=== PATIENT | female | born 1935 | race Caucasian/White ===

== ENCOUNTER → 2016-04-26 | Outpatient (CLI) | payer MEDICARE, BC ==
--- NOTE | 2016-04-30 09:12 | MM ---
Reason for exam: screening (asymptomatic). Last mammogram was performed 1 year ago. History: Patient is postmenopausal. Family history of breast cancer in sister at age 75. Benign excisional biopsy of the left breast, 1960. Benign excisional biopsy of the left breast. Physical Findings: A clinical breast exam by your physician is recommended on an annual basis and results should be correlated with mammographic findings. MG 3D Screening Mammo W/Cad Bilateral CC and MLO view(s) were taken. Prior study comparison: May 02, 2015, right breast MG 3d work up w/cad RT. April 22, 2015, bilateral MG screening mammo w CAD. March 11, 2014, bilateral MG screening mammo w CAD. There are scattered fibroglandular densities. No significant changes when compared with prior studies. ASSESSMENT: Benign, BI-RAD 2 RECOMMENDATION: Routine screening mammogram of both breasts in 1 year.
== END ==
LOC: RADMAMWWP 16:25
PROVIDERS: ATTEND Family Medicine
DX: Z12.31 Encounter for screening mammogram for malignant neoplasm of breast (principal)
CPT/HCPCS: 77063; G0202

== ENCOUNTER → 2016-08-22 | Outpatient (CLI) | payer MEDICARE, BC ==
--- NOTE | 2016-08-23 11:55 | BD ---
EXAMINATION TYPE: MG DEXA axial skeleton. DATE OF EXAM: 08/22/2016 COMPARISON: NONE CLINICAL HISTORY: Height: 5 ft 6 in Weight: 210 FRAX RISK QUESTIONS: Alcohol (3 or more units per day): NO Family History (Parent hip fracture): NO Glucocorticoids (More than 3mos): NO (Ex: prednisone, prednisolone, methylprednisolone, dexamethasone, and hydrocortisone). History of Fracture in Adulthood: NO Secondary Osteoporosis: 1. Type 1 Diabetes: NO 2. Hyperthyroidism: NO 3. Menopause before 45: NO 4. Malnutrition: NO 5. Chronic liver disease: NO Rheumatoid Arthritis: NO Current Tobacco Use: NO RISK FACTORS HISTORY OF: Active: NO Postmenopausal woman: AGE 49 Lost more than 2 inches in height since high school: YES Frequent falls: NO USES A CANE Additional Medications: VIT D2, VERAPAMIL, LEVOTHYROXINE, LOSARTIN POTASSIUM, CLOPIDOGREL, PAROXTINE, COQ10,CALCIUM Additional History: EXAM MEASUREMENTS: Bone mineral densitometry was performed using the [employer]. Bone mineral density as measured about the Lumbar spine is: ----- L1-L4(G/cm2): 1.156 T Score Values are as follows: ----- L2: 0.2 ----- L3: -1.0 ----- L4: -0.6 ----- L1-L4: -0.2 Bone mineral density has: Increased 0.1% since study of: 2013 Bone mineral density about the R hip (g/cm2): 0.675 Bone mineral density about the L hip (g/cm2): 0.703 T Score values are as follows: -----R Neck: -2.6 -----L Neck: -2.4 -----R Total: -2.5 -----L Total: -2.2 Bone mineral density has: Increased 0.7% since study of: 2013 IMPRESSION: Osteoporosis (T Score less than -2.5) as noted by T Score values at the There is increased fracture risk and therapy is usually indicated based on age. Re-Screen 1-2 years. Bone density has improved 0.7% from 2014 within the bilateral hips. Bone density is improved 0.1% wit hin the lumbar spine from 2013. NOTE: T-SCORE=SD OF THE YOUNG ADULT MEAN.
== END | disposition home or self-care (01) ==
LOC: RADBDWWP 16:18
PROVIDERS: ATTEND Family Medicine
DX: M81.0 Age-related osteoporosis without current pathological fracture (principal)
CPT/HCPCS: 77080

== ENCOUNTER → 2017-06-14 | Outpatient (CLI) | payer MEDICARE, BC ==
--- NOTE | 2017-06-18 10:19 | MM ---
Reason for exam: screening (asymptomatic). Last mammogram was performed 1 year and 2 months ago. History: Patient is postmenopausal. Family history of breast cancer in sister at age 75. Benign excisional biopsy of the left breast, 1960. Benign excisional biopsy of the left breast. Physical Findings: A clinical breast exam by your physician is recommended on an annual basis and results should be correlated with mammographic findings. MG 3D Screening Mammo W/Cad Bilateral CC and MLO view(s) were taken. Prior study comparison: April 26, 2016, bilateral MG 3d screening mammo w/cad. May 02, 2015, right breast MG 3d work up w/cad RT. The breast tissue is heterogeneously dense. This may lower the sensitivity of mammography. Finding: There are typically benign punctate calcifications in both breasts. No suspicious abnormality. No significant changes in finding since April 26, 2016 and May 02, 2015. ASSESSMENT: Benign, BI-RAD 2 RECOMMENDATION: Routine screening mammogram of both breasts in 1 year.
== END | disposition home or self-care (01) ==
LOC: RADMAMWWP 16:16
PROVIDERS: ATTEND Family Medicine
DX: Z12.31 Encounter for screening mammogram for malignant neoplasm of breast (principal)
CPT/HCPCS: 77063; 77067

== ENCOUNTER → 2018-09-18 | Outpatient (CLI) | payer MEDICARE, BC | END | disposition home or self-care (01) | LOC: RADECHMAIN 11:50 | PROVIDERS: ATTEND Family Medicine | DX: I49.3 Ventricular premature depolarization (principal); I49.1 Atrial premature depolarization; I95.9 Hypotension, unspecified; R01.1 Cardiac murmur, unspecified; Z88.1 Allergy status to other antibiotic agents; Z88.8 Allergy status to other drugs, medicaments and biological substances | CPT/HCPCS: 93270 ==

== ENCOUNTER → 2018-12-05 | Outpatient (CLI) | payer MEDICARE, BC ==
[2018-12-05 12:58] LABS: Basophils % (A) 1 %; Eosinophils # (A) 0.4 k/uL (0-0.7); Eosinophils % (A) 5 %; HCT 42.6 % (34.0-46.0); HGB 14.2 gm/dL (11.4-16.0); Lymphocytes # (A) 1.4 k/uL (1.0-4.8); Lymphocytes % (A) 18 %; MCH 31.9 pg (25.0-35.0); MCHC 33.4 g/dL (31.0-37.0); MCV 95.5 fL (80.0-100.0); Mean Platelet Volume 6.2; Monocytes # (A) 0.5 k/uL (0-1.0); Monocytes % (A) 6 %; Neutrophils # (A) 5.5 k/uL (1.3-7.7); Neutrophils % (A) 69 %; Platelet Count 241 k/uL (150-450); RBC 4.45 m/uL (3.80-5.40); RDW 13.3 % (11.5-15.5)
[2018-12-05 13:07] LABS: Potassium 4.3 mmol/L (3.5-5.1)
== END | disposition home or self-care (01) ==
LOC: LABPAT 11:40
PROVIDERS: ATTEND Urology
DX: Z01.812 Encounter for preprocedural laboratory examination (principal); N20.1 Calculus of ureter
CPT/HCPCS: 80048; 85025

== ENCOUNTER 2018-12-11 07:30 | Day surgery (SDC) | payer BC, MEDICARE ==
--- NOTE | 2018-11-26 13:55 | P.HPIHPCON ---
History of Present Illness H&P Date: 12/11/18 Chief Complaint: right flank pain 83 yo female with hx of 5mm right sided distal stone and gross hematuria. 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 I have explained the operation/procedure to the patient, including the risks, benefits, side effects, alternative therapies (including not receiving the proposed treatment or service), the likelihood of the patient achieving his/her goals, and potential recuperation problems for the procedure/sedation/analgesia, as well as any blood products, if indicated. I also explained to the patient the risks, benefits and side effects of the alternatives, as well as the risks related to not receiving the proposed procedure, care, treatment, or services. Consent for Procedure: I have explained the operation/procedure to the patient, including the risks, benefits, side effects, alternative therapies (including not receiving the proposed treatment or service), the likelihood of the patient achieving his/her goals, and potential recuperation problems for the procedure/sedation/analgesia, as well as any blood products, if indicated. I also explained to the patient the risks, benefits and side effects of the alternatives, as well as the risks related to not receiving the proposed procedure, care, treatment, or services. - Constitutional Constitutional: Denies chills, Denies fever - Cardiovascular Cardiovascular: Denies chest pain, Denies leg edema - Respiratory Respiratory: Denies cough, Denies respiratory infections Past Medical History Past Medical History: CVA/TIA, Hyperlipidemia, Hypertension, Thyroid Disorder History of Any Multi-Drug Resistant Organisms: None Reported Past Surgical History: Hernia Repair, Joint Replacement, Orthopedic Surgery Additional Past Surgical History / Comment(s): vein stripping Past Psychological History: No Psychological Hx Reported Smoking Status: Never smoker Past Alcohol Use History: None Reported Past Drug Use History: None Reported Medications and Allergies Home Medications Medication Instructions Recorded Confirmed Type Calcium Carbonate [Calcium] 2,400 mg PO DAILY 09/09/15 01/16/16 History Clopidogrel Bisulfate [Plavix] 75 mg PO DAILY 09/09/15 01/16/16 History Ergocalciferol [Vitamin D2 50,000 mg PO QMONTH 09/09/15 01/16/16 History (DRISDOL)] Levothyroxine Sodium [Synthroid] 88 mcg PO DAILY 09/09/15 01/16/16 History Losartan Potassium 100 mg PO DAILY 09/09/15 01/16/16 History PARoxetine HCL 40 mg PO HS 09/09/15 01/16/16 History Ubidecarenone [Co Q-10] 200 mg PO DAILY 09/09/15 01/16/16 History Verapamil Sr [Isoptin Sr] 240 mg PO BID 09/09/15 01/16/16 History Cyclobenzaprine [Flexeril] 5 mg PO BID PRN #10 tab 01/16/16 Rx Allergies Allergy/AdvReac Type Severity Reaction Status Date / Time erythromycin base AdvReac Unknown Verified 01/16/16 18:37 [From Staticin] ethyl alcohol [From Staticin] AdvReac Unknown Verified 01/16/16 18:37 propoxyphene napsylate AdvReac Chest Pain Verified 01/16/16 18:37 [From Darvocet-N] Surgical - Exam - General well developed, well nourished, moderate pain - Respiratory normal expansion, normal respiratory effort - Abdomen Abdomen: soft, non tender, no distended Assessment and Plan Assessment: 83 yo female with hx of gross hematuria and right sided ureteral stone -right ureteroscopy with holimum laser. given her hematuria will plan on doing left RPG
[2018-12-10 11:15] VITALS: BMI 33.4
[~2018-12-11 07:30] MED LIST: DEXAMETHASONE SOD PHOSPHATE 10 MG/ML 1 ML VIAL IV ONE; HYDROmorphone 0.5 MG/0.5 ML SYRINGE IVP PRN; LACTATED RINGERS 1,000 ML IV SCH; ONDANSETRON 4 MG/2 ML VIAL IVP ONE
--- NOTE | 2018-12-11 07:49 | XR ---
EXAMINATION TYPE: XR KUB DATE OF EXAM: 12/11/2018 CLINICAL HISTORY: Nephrolithiasis and abdominal pain TECHNIQUE: Single KUB supine projection of the abdomen. COMPARISON: None. FINDINGS: There is a moderate amount retained colonic stool throughout the colon. There is a 5 mm rig ht-sided renal calcification. No left-sided renal calcifications are seen. Extensive degenerative miracle nges of the spine and mild levoscoliotic curvature. With the left noted in the pelvis. Diffuse osseou s demineralization. Extensive degenerative changes of the hips. Phleboliths are noted in the pelvis. IMPRESSION: 1. Solitary right renal calculus. 2. Moderate degree colonic fecal stasis in an overall nonobstructive bowel gas pattern.
[2018-12-11] MEDS ORDERED: LIDOCAINE 1% 20 ML VIAL (10MG/ML) FOR IV START INTRADERMA ONE (08:05)
[2018-12-11] MEDS ORDERED: fentaNYL (PF) 50 MCG/ML 2 ML AMP ONE (08:51)
[2018-12-11] MEDS ORDERED: PROPOFOL 10 MG/ML 20 ML VIAL IV ONE (08:51)
[2018-12-11] MEDS ORDERED: SUCCINYLCHOLINE CHLORIDE 100 MG/5 ML SYR IV ONE (08:51)
[2018-12-11] MEDS ORDERED: LIDOCAINE 1% INJ 10MG/ML (20 ML MDV) ONE (08:51)
[2018-12-11] MEDS ORDERED: IOPAMIDOL-370 50ML BTL MISCELLANE ONE (09:18)
[2018-12-11 10:32] VITALS: TEMP 97.3
--- NOTE | 2018-12-11 11:51 | FL ---
EXAMINATION TYPE: FL urography retrograde DATE OF EXAM: 12/11/2018 COMPARISON: NONE HISTORY: Fluoroscopic documentation during retrograde ureteroscopy bilaterally. History of nephrolith iasis. TECHNIQUE: Fluoroscopy. FINDINGS: Fluoroscopic guidance was provided during procedure performed by Dr. Lugo. A total of 4 6 seconds of fluoroscopic time was utilized during the procedure and 7 spot images was acquired demon strating ureteral cannulation and hydronephrosis of one kidney, laterality unspecified on the provide d images. IMPRESSION: As Above.
[2018-12-11 13:21] VITALS: BP 148/88; PULSE 79; RESP 18
--- NOTE | 2018-12-11 19:24 | P.OP ---
Date of Procedure: 12/11/18 Preoperative Diagnosis: right-sided ureteral stone/gross hematuria Postoperative Diagnosis: same Procedure(s) Performed: cystoscopy, left retrograde pyelogram, right retrograde pyelogram, ureteroscopy, holmium laser lithotripsy, stone basketing and stent placement Implants: 4.8 Fr X 26 cm stent Anesthesia: JENNIFER Surgeon: Gareth Lugo IV fluids (ml): 5 Disposition: PACU Indications for Procedure: 83 yo female with hx of 5mm right sided distal stone and gross hematuria. 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 she elected to proceed with bilateral retrograde pyelogram and right-sided ureteroscopy with laser lithotripsy, stone basketing and stent placement. Discussed risk of bleeding, infection and injury to the ureter from the procedure. she agreed to proceed I have explained the operation/procedure to the patient, including the risks, benefits, side effects, alternative therapies (including not receiving the proposed treatment or service), the likelihood of the patient achieving his/her goals, and potential recuperation problems for the procedure/sedation/analgesia, as well as any blood products, if indicated. I also explained to the patient the risks, benefits and side effects of the alternatives, as well as the risks related to not receiving the proposed procedure, care, treatment, or services. Operative Findings: impacted right sided distal stone with scar distal ureter distal to the stone Description of Procedure: the patient was brought to the operating room, general anesthesia was induced. The patient was placed in dorsal lithotomy position. She was prepped and draped in sterile fashion. A cystoscope fitted with a 22 sheath was inserted per urethra. Cystoscopy was performed which showed no suspicious lesions within the bladder. Attention Was first carried to the left side a 6-Italian open ended catheter was used to intubate the left ureteral orifice retrograde pyelogram was performed which showed no filling defects or hydronephrosis on the left side. At this time attention was directed to the right side. The right ureteral orifice was intubated with a 6-Italian open-ended catheter and retrograde pyelogram was performed which showed no contrast flowing passed the stone. We then attempted to pass a sensor wire through the catheter past the stone but resistance was met at this time the cystoscope was removed and a semirigid ureteroscope was inserted. The ureteroscope was inserted through the right ureteral orifice and advanced to the distal ureter a scar was identified in the distal ureter distal to the stone and the stone appeared to be impacted at that site. We were able to navigate the flexible ureteroscope past the stricture. Holmium laser was used and the stone was fragmented into small fragments. Using the stone baskets large fragments were removed and sent to pathology for stone analysis. The rigid ureteroscope was reinserted and a repeat ureteroscopy showed no additional stones along the ureter or injury to the ureter. patient has a known 5 mm nonobstructing renal calculus. But given patient's Plavix and the stricture along the distal ureter. Decision was made not to approach the stone given the risk of bleeding and the potential of injuring the ureter given the stricture. This was discussed with the patient in preop given her Plavix use if there is a concern of bleeding and we will not proceed with addressing the renal calculi given that is not obstructing at this point. Next the cystoscope was reinserted, and a 0.035 sensor wire was advanced through the cystoscope and up the ureter. Next a 4.8-Italian by 26 cm stent was advanced over the wire and up the ureter. The proximal curl was visualized using fluoroscopy, the distal curl was visualized using the cystoscope. The bladder was emptied at the end of the case. Patient tolerated the procedure well and was taken to PACU in stable condition
== END 2018-12-11 13:15 | disposition home or self-care (01) ==
LOC: OR 07:30
PROVIDERS: ATTEND Urology
DX: N20.1 Calculus of ureter (principal); N13.5 Crossing vessel and stricture of ureter without hydronephrosis; R31.0 Gross hematuria; E78.5 Hyperlipidemia, unspecified; I10 Essential (primary) hypertension; E07.9 Disorder of thyroid, unspecified; Z86.73 Personal history of transient ischemic attack (TIA), and cerebral infarction without residual deficits; Z79.02 Long term (current) use of antithrombotics/antiplatelets; Z79.890 Hormone replacement therapy; Z79.899 Other long term (current) drug therapy; Z88.1 Allergy status to other antibiotic agents; Z88.5 Allergy status to narcotic agent; Z91.048 Other nonmedicinal substance allergy status
CPT/HCPCS: 52356; 82365; 74420; 74018; C2625; C1758; J1100; J0690; J2405; J2001; J3010; J0330; J2704; Q9967

== ENCOUNTER 2019-10-09 01:34 | Inpatient (IN) | payer MEDICARE, BC ==
[2019-10-09 02:52] LABS: Basophils % (A) 0 %; Eosinophils # (A) 0.2 k/uL (0-0.7); Eosinophils % (A) 2 %; HCT 49.6 % (34.0-46.0); HGB 16.2 gm/dL (11.4-16.0); Lymphocytes # (A) 1.1 k/uL (1.0-4.8); Lymphocytes % (A) 7 %; MCH 31.4 pg (25.0-35.0); MCHC 32.7 g/dL (31.0-37.0); MCV 95.8 fL (80.0-100.0); Mean Platelet Volume 7.5; Monocytes # (A) 0.8 k/uL (0-1.0); Monocytes % (A) 5 %; Neutrophils # (A) 13.1 k/uL (1.3-7.7); Neutrophils % (A) 85 %; Platelet Count 215 k/uL (150-450); RBC 5.17 m/uL (3.80-5.40); RDW 13.5 % (11.5-15.5); WBC 15.4 k/uL (3.8-10.6)
[2019-10-09] MEDS ORDERED: MORPHINE SULFATE 4 MG/ML SYRINGE IV STA (02:54)
[2019-10-09 03:01] LABS: ALT 12 U/L (4-34); AST 17 U/L (14-36); African American GFR (CKD) >90 (>60 ml/min/1.73 sqM); Albumin 4.2 g/dL (3.5-5.0); Alkaline Phosphatase 92 U/L (38-126); Amylase 47 U/L (30-110); Anion Gap 7 mmol/L; Blood Urea Nitrogen 27 mg/dL (7-17); Calcium 10.9 mg/dL (8.4-10.2); Carbon Dioxide 24 mmol/L (22-30); Chloride 106 mmol/L (98-107); Glucose 154 mg/dL (74-99); Lipase 62 U/L (23-300); Non-African American GFR(CKD) 81 (>60 ml/min/1.73 sqM); Potassium 4.3 mmol/L (3.5-5.1); Sodium 137 mmol/L (137-145); Total Bilirubin 0.9 mg/dL (0.2-1.3)
[2019-10-09] MEDS ORDERED: LABETALOL 5 MG/ML VIAL MDV IVP STA (03:28)
--- NOTE | 2019-10-09 03:58 | CT ---
EXAMINATION TYPE: CT abdomen pelvis wo con DATE OF EXAM: 10/09/2019 COMPARISON: None HISTORY: Right lateral abdominal pain CT DLP: 1388.4 mGycm Automated exposure control for dose reduction was used. Multiple axial sections were obtained from the diaphragm to the floor the pelvis with no contrast. FINDINGS: There is patchy infiltrate or atelectasis at both lung bases. There is no pleural effusion. Heart panda ears slightly enlarged. Stomach is intact. Liver and gallbladder appear intact. Bile ducts are not dilated. Spleen is intact. There is no evidence of pancreatic mass. There is no adrenal mass. Kidneys have normal size. There is right-sided perinephric edema and right- sided hydronephrosis. There is hydroureter with 10 mm obstructing calculus in the mid right ureter. B ladder distends smoothly. There is no evidence of a pelvic mass. There is hysterectomy. There is no f ree fluid in the pelvis. There are multiple sigmoid diverticula. I see no sign of diverticulitis. Panda endix is not seen. There is no sign of thickened appendix. There is 1 cm high density nodule on the p osterior left kidney that is probably a cyst containing calcium. There is no renal atrophy. There is no mesenteric edema. There is no ascites or free air. There is no evidence of a bowel obstru ction. There is no inguinal hernia. Lumbar vertebra have fairly normal alignment. There is disc space narrowing and multilevel vacuum dis c. There is no compression fracture. Bony pelvis is intact. 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 IMPRESSION: Obstructing large calculus in the midright ureter with right-sided hydronephrosis and hydroureter. Pe rinephric edema. Sigmoid diverticulosis without diverticulitis. Mild infiltrates and atelectasis at the lung bases.
[2019-10-09 04:21] LABS: Appearance,Urine Cloudy (Clear); Bilirubin,Urine Negative (Negative); Blood,Urine Large (Negative); Color,Urine Red; Glucose,Urine (UA) Negative (Negative); Ketones,Urine Negative (Negative); Leukocyte Esterase,Urine Large (Negative); Mucus,Urine Rare /hpf; Nitrite,Urine Negative (Negative); PH, Urine 5.5 (5.0-8.0); Protein,Urine 1+ (Negative); RBC,Urine >182 /hpf (0-5); Specific Gravity,Urine 1.018 (1.001-1.035); Urobilinogen,Urine <2.0 mg/dL (<2.0); WBC,Urine >182 /hpf (0-5)
[2019-10-09] MEDS ORDERED: NALOXONE 0.4 MG/ML 1 ML VIAL IV PRN (05:44)
[2019-10-09] MEDS ORDERED: ACETAMINOPHEN TAB 325 MG TAB PO PRN (05:44)
[2019-10-09] MEDS ORDERED: ONDANSETRON 4 MG/2 ML VIAL IVP PRN (05:44)
[2019-10-09] MEDS: MORPHINE SULFATE 4 MG/ML SYRINGE IV PRN ×3 (05:56→19:22)
--- NOTE | 2019-10-09 06:55 | ED ---
Abdominal Pain HPI - General Chief Complaint: Abdominal Pain Stated Complaint: abd pain Time Seen by Provider: 10/09/19 02:52 Source: patient Mode of arrival: ambulatory Limitations: no limitations - History of Present Illness MD Complaint: abdominal pain -: hour(s) Location: R flank Radiation: none Migration to: RLQ Severity: severe Quality: sharp Consistency: constant Improves With: nothing Worsens With: nothing Associated Symptoms: nausea - Related Data Home Medications Medication Instructions Recorded Confirmed Clopidogrel Bisulfate [Plavix] 75 mg PO DAILY 09/09/15 12/11/18 Ergocalciferol [Vitamin D2 50,000 mg PO Q14D 09/09/15 12/11/18 (DRISDOL)] Levothyroxine Sodium [Synthroid] 88 mcg PO DAILY 09/09/15 12/11/18 Losartan Potassium 100 mg PO DAILY 09/09/15 12/11/18 PARoxetine HCL 40 mg PO HS 09/09/15 12/11/18 Ubidecarenone [Co Q-10] 200 mg PO DAILY 09/09/15 12/11/18 Aspirin 81 mg PO DAILY 12/10/18 12/11/18 Calcium Carbonate/Vitamin D3 1 each PO BID 12/10/18 12/11/18 [Calcium 600-Vit D3 2,500 Sftgl] Docusate [Colace] 100 mg PO DAILY 12/10/18 12/11/18 L.acidoph,Paracasei, B.lactis 1 each PO DAILY 12/10/18 12/11/18 [Probiotic] [place](Unknown Dose) 1 tab PO Q6H PRN 12/10/18 12/11/18 Rosuvastatin Calcium [Crestor] 5 mg PO HS 12/10/18 12/11/18 Tamsulosin [Flomax] 0.4 mg PO DAILY 12/10/18 12/11/18 Allergies Allergy/AdvReac Type Severity Reaction Status Date / Time propoxyphene napsylate Allergy Chest Pain Verified 10/09/19 02:03 [From Balaji] Review of Systems ROS Statement: Those systems with pertinent positive or pertinent negative responses have been documented in the HPI. ROS Other: All systems not noted in ROS Statement are negative. Constitutional: Denies: fever, chills, weakness Respiratory: Denies: cough, dyspnea Cardiovascular: Denies: chest pain, palpitations, edema Gastrointestinal: Reports: as per HPI, abdominal pain, nausea. Denies: vomiting, diarrhea, constipation, melena, hematochezia Genitourinary: Denies: dysuria, frequency, hematuria Musculoskeletal: Denies: back pain Skin: Denies: rash Neurological: Denies: headache, weakness, numbness Past Medical History Past Medical History: CVA/TIA, Hyperlipidemia, Hypertension, Thyroid Disorder Additional Past Medical History / Comment(s): stroke may 2018 History of Any Multi-Drug Resistant Organisms: None Reported Past Surgical History: Hernia Repair, Joint Replacement, Orthopedic Surgery Additional Past Surgical History / Comment(s): vein stripping. kidney stent placement Past Anesthesia/Blood Transfusion Reactions: No Reported Reaction Past Psychological History: No Psychological Hx Reported Smoking Status: Never smoker Past Alcohol Use History: None Reported Past Drug Use History: None Reported - Past Family History Mother Family Medical History: No Reported History General Exam Limitations: no limitations General appearance: alert, in no apparent distress Head exam: Present: atraumatic, normocephalic Eye exam: Present: normal appearance. Absent: scleral icterus, conjunctival injection ENT exam: Present: normal oropharynx Neck exam: Present: normal inspection Respiratory exam: Present: normal lung sounds bilaterally. Absent: respiratory distress, wheezes, rales, rhonchi, stridor Cardiovascular Exam: Present: regular rate, normal rhythm, normal heart sounds. Absent: systolic murmur, diastolic murmur, rubs, gallop GI/Abdominal exam: Present: soft, tenderness (There is mild right lower quadrant tenderness without rebound or guarding), normal bowel sounds. Absent: distended, guarding, rebound, rigid, mass, pulsatile mass, hernia Extremities exam: Present: normal inspection, normal capillary refill. Absent: pedal edema, calf tenderness Back exam: Present: normal inspection, CVA tenderness (R). Absent: CVA tenderness (L), vertebral tenderness Neurological exam: Present: alert Skin exam: Present: warm, dry, intact, normal color. Absent: rash Course Vital Signs 10/09/19 10/09/19 10/09/19 02:00 03:15 03:49 Temperature 98.1 F Pulse Rate 69 75 73 Respiratory 18 18 18 Rate Blood Pressure 199/103 201/102 196/105 O2 Sat by Pulse 97 97 95 Oximetry 10/09/19 10/09/19 03:56 04:55 Temperature Pulse Rate 73 78 Respiratory 19 18 Rate Blood Pressure 166/89 185/105 O2 Sat by Pulse 95 97 Oximetry Medical Decision Making - Medical Decision Making Patient is an 84-year-old woman presenting with right flank radiating to right lower quadrant pain. The workup does reveal approximately 1 cm ureteral stone with hydronephrosis. Patient is requiring multiple pain medications. She states that she had a previous stone that measured 8 mm that was not able to pass and she required a stent. In light of this, patient's case discussed with her primary physician Dr. Mueller, who will admit for symptom management. Case also discussed with Dr. Ochoa, covering for urology and they will see the patient as well. - Lab Data Result diagrams: 10/09/19 02:45 10/09/19 02:45 Lab Results 10/09/19 10/09/19 10/09/19 Range/Units 02:45 02:45 04:09 WBC 15.4 H (3.8-10.6) k/uL RBC 5.17 (3.80-5.40) m/uL Hgb 16.2 H (11.4-16.0) gm/dL Hct 49.6 H (34.0-46.0) % MCV 95.8 (80.0-100.0) fL MCH 31.4 (25.0-35.0) pg MCHC 32.7 (31.0-37.0) g/dL RDW 13.5 (11.5-15.5) % Plt Count 215 (150-450) k/uL Neutrophils % 85 % Lymphocytes % 7 % Monocytes % 5 % Eosinophils % 2 % Basophils % 0 % Neutrophils # 13.1 H (1.3-7.7) k/uL Lymphocytes # 1.1 (1.0-4.8) k/uL Monocytes # 0.8 (0-1.0) k/uL Eosinophils # 0.2 (0-0.7) k/uL Basophils # 0.0 (0-0.2) k/uL Sodium 137 (137-145) mmol/L Potassium 4.3 (3.5-5.1) mmol/L Chloride 106 (98-107) mmol/L Carbon Dioxide 24 (22-30) mmol/L Anion Gap 7 mmol/L BUN 27 H (7-17) mg/dL Creatinine 0.66 (0.52-1.04) mg/dL Est GFR (CKD-EPI)AfAm >90 (>60 ml/min/1.73 sqM) Est GFR (CKD-EPI)NonAf 81 (>60 ml/min/1.73 sqM) Glucose 154 H (74-99) mg/dL Calcium 10.9 H (8.4-10.2) mg/dL Total Bilirubin 0.9 (0.2-1.3) mg/dL AST 17 (14-36) U/L ALT 12 (4-34) U/L Alkaline Phosphatase 92 (38-126) U/L Total Protein 7.0 (6.3-8.2) g/dL Albumin 4.2 (3.5-5.0) g/dL Amylase 47 (30-110) U/L Lipase 62 (23-300) U/L Urine Color Red Urine Appearance Cloudy H (Clear) Urine pH 5.5 (5.0-8.0) Ur Specific [place] 1.018 (1.001-1.035) Urine Protein 1+ H (Negative) Urine Glucose (UA) Negative (Negative) Urine Ketones Negative (Negative) Urine Blood Large H (Negative) Urine Nitrite Negative (Negative) Urine Bilirubin Negative (Negative) Urine Urobilinogen <2.0 (<2.0) mg/dL Ur Leukocyte Esterase Large H (Negative) Urine RBC >182 H (0-5) /hpf Urine WBC >182 H (0-5) /hpf Urine Mucus Rare H (None) /hpf Disposition Clinical Impression: Ureterolithiasis, Hydronephrosis, Intractable abdominal pain, Hypertension Disposition: ADMITTED IP TO THIS HOSP Condition: Fair
[2019-10-09] MEDS: SODIUM CHLORIDE 0.9% 1,000 ML IV SCH (08:42)
[2019-10-09] MEDS: LEVOTHYROXINE 88 MCG TAB PO SCH (10:15)
[2019-10-09] MEDS: LOSARTAN 50 MG TAB PO SCH (10:15)
[2019-10-09] MEDS: DOCUSATE 100 MG CAP PO SCH (10:15)
[2019-10-09] MEDS: CLOPIDOGREL 75 MG TAB PO SCH (10:15)
[2019-10-09] MEDS: TAMSULOSIN 0.4 MG CAP.ER.24H PO SCH (10:15)
[2019-10-09] MEDS: ASPIRIN 81 MG PO SCH (10:15)
[2019-10-09] MEDS ORDERED: HYDROcodone/APAP 5-325MG 1 EACH TAB PO PRN (11:04)
[2019-10-09] MEDS ORDERED: SODIUM CHLORIDE 0.9% 1,000 ML IV ONE (12:07)
[2019-10-09] MEDS ORDERED: SODIUM CHLORIDE 0.9% 50 ML with ceFAZolin 1,000 MG IV ONE ×2 (12:12)
[2019-10-09] MEDS ORDERED: KETOROLAC 15 MG/ML 1 ML VIAL IM STA (12:47)
--- NOTE | 2019-10-09 15:15 | P.GSCN ---
History of Present Illness Consult date: 10/09/19 Reason for Consult: Right ureteral calculus History of present illness: The patient is an 84-year-old female with a history of urolithiasis who developed the abrupt onset of severe right lower quadrant pain associated with nausea at approximately 7 PM last night. The pain persisted and she came to the emergency room this morning for evaluation. Computed tomography scan of the abdomen and pelvis identified a 7 x 10 x 11 mm calculus in the distal right ureter with secondary hydronephrosis. She has continued to have pain and was admitted treatment of this and the stone. She has had no fever. She denies any gross hematuria. The patient had undergone right ureteroscopy with lithotripsy in 11/2018 performed by . A 5 mm distal right ureteral calculus was treated. A 5 mm right renal calculus was not treated as the patient was on aspirin and Persantine and there was concern in regard to bleeding. The patient was felt to have had a narrowed area in the right ureter distal to the ureteral calculus and a double-J catheter was left in place for approximately 2 weeks following surgery. She's had no problems since then. Review of Systems - Constitutional Reports chills, Denies fever - Cardiovascular Reports high blood pressure, Denies chest pain, Denies shortness of breath - Respiratory Denies cough, Denies wheezing - Gastrointestinal Reports as per HPI - Genitourinary Genitourinary: Reports as per HPI Past Medical History Past Medical History: CVA/TIA, Hyperlipidemia, Hypertension, Pneumonia, Thyroid Disorder, Vascular Disorder Additional Past Medical History / Comment(s): Rapid heart beat at times, TIAs/CVA 2018 no residual, R kidney stone/hematuria/stent then stent removed, UTIs, hemorrhoids, benign colon polyps, bronchitis, sinus issues,. balance issues-uses walker, chronic back pain with past sciatica, superficial phlebitis, varicose veins R leg, History of Any Multi-Drug Resistant Organisms: None Reported Past Surgical History: Adenoidectomy, Appendectomy, Breast Surgery, Hernia Repair, Hysterectomy, Joint Replacement, Orthopedic Surgery, Tonsillectomy Additional Past Surgical History / Comment(s): cystoscopy with litho/basketing and stenting of R ureter-stent since removed, umbilical hernia repair, bladder suspension, L breast biopsy/cyst, colonoscopy/benign polyps, L total knee ar throplasty, elbow dislocation/surgery, R thumb surgery-pt cannot recall reason, pain procedures, L leg vein stripping, bilateral cataract removals/lens implants, Past Anesthesia/Blood Transfusion Reactions: No Reported Reaction Smoking Status: Never smoker - Past Family History Mother Family Medical History: No Reported History Additional Family Medical History / Comment(s): Mother was healthy Father Additional Family Medical History / Comment(s): Heart problems, hernia Medications and Allergies Home Medications Medication Instructions Recorded Confirmed Type Clopidogrel Bisulfate [Plavix] 75 mg PO DAILY 09/09/15 10/09/19 History Ergocalciferol [Vitamin D2 50,000 mg PO Q14D 09/09/15 10/09/19 History (DRISDOL)] Levothyroxine Sodium [Synthroid] 88 mcg PO DAILY 09/09/15 10/09/19 History PARoxetine HCL 40 mg PO HS 09/09/15 10/09/19 History Ubidecarenone [Co Q-10] 200 mg PO HS 09/09/15 10/09/19 History Aspirin 81 mg PO DAILY 12/10/18 10/09/19 History Calcium Carbonate/Vitamin D3 1 cap PO BID 12/10/18 10/09/19 History [Calcium 600-Vit D3 2,500 Sftgl] L.acidoph,Paracasei, B.lactis 1 cap PO HS 12/10/18 10/09/19 History [Probiotic] Rosuvastatin Calcium [Crestor] 5 mg PO HS 12/10/18 10/09/19 History Ammonium Lactate Cream [Lac-Hydrin 1 applic TOPICAL BID 10/09/19 10/09/19 History 12% Cream] HYDROcodone/APAP 5-325MG [[place] 1 tab PO Q4HR PRN 10/09/19 10/09/19 History 5-325] Losartan Potassium [Cozaar] 25 mg PO DAILY 10/09/19 10/09/19 History Allergies Allergy/AdvReac Type Severity Reaction Status Date / Time propoxyphene napsylate Allergy Chest Pain Verified 10/09/19 08:03 [From Balaji] Surgical - Exam Vital Signs Temp Pulse Resp BP Pulse Ox 98.1 F 69 18 199/103 97 10/09/19 02:00 10/09/19 02:00 10/09/19 02:00 10/09/19 02:00 10/09/19 02:00 - General well developed, well nourished, moderate distress, obese - ENT no hearing loss - Neck no masses, no lymphadectomy - Respiratory normal respiratory effort - Abdomen Abdomen: soft, no organomegaly Results - Labs 10/09/19 02:45 10/09/19 02:45 Abnormal Lab Results - Last 24 Hours (Table) 10/09/19 10/09/19 10/09/19 Range/Units 02:45 02:45 04:09 WBC 15.4 H (3.8-10.6) k/uL Hgb 16.2 H (11.4-16.0) gm/dL Hct 49.6 H (34.0-46.0) % Neutrophils # 13.1 H (1.3-7.7) k/uL BUN 27 H (7-17) mg/dL Glucose 154 H (74-99) mg/dL Calcium 10.9 H (8.4-10.2) mg/dL Urine Appearance Cloudy H (Clear) Urine Protein 1+ H (Negative) Urine Blood Large H (Negative) Ur Leukocyte Esterase Large H (Negative) Urine RBC >182 H (0-5) /hpf Urine WBC >182 H (0-5) /hpf Urine Mucus Rare H (None) /hpf Diabetes panel 10/09/19 Range/Units 02:45 Sodium 137 (137-145) mmol/L Potassium 4.3 (3.5-5.1) mmol/L Chloride 106 (98-107) mmol/L Carbon Dioxide 24 (22-30) mmol/L BUN 27 H (7-17) mg/dL Creatinine 0.66 (0.52-1.04) mg/dL Glucose 154 H (74-99) mg/dL Calcium 10.9 H (8.4-10.2) mg/dL AST 17 (14-36) U/L ALT 12 (4-34) U/L Alkaline Phosphatase 92 (38-126) U/L Total Protein 7.0 (6.3-8.2) g/dL Albumin 4.2 (3.5-5.0) g/dL Calcium panel 10/09/19 Range/Units 02:45 Calcium 10.9 H (8.4-10.2) mg/dL Albumin 4.2 (3.5-5.0) g/dL Pituitary panel 10/09/19 Range/Units 02:45 Sodium 137 (137-145) mmol/L Potassium 4.3 (3.5-5.1) mmol/L Chloride 106 (98-107) mmol/L Carbon Dioxide 24 (22-30) mmol/L BUN 27 H (7-17) mg/dL Creatinine 0.66 (0.52-1.04) mg/dL Glucose 154 H (74-99) mg/dL Calcium 10.9 H (8.4-10.2) mg/dL Adrenal panel 10/09/19 Range/Units 02:45 Sodium 137 (137-145) mmol/L Potassium 4.3 (3.5-5.1) mmol/L Chloride 106 (98-107) mmol/L Carbon Dioxide 24 (22-30) mmol/L BUN 27 H (7-17) mg/dL Creatinine 0.66 (0.52-1.04) mg/dL Glucose 154 H (74-99) mg/dL Calcium 10.9 H (8.4-10.2) mg/dL Total Bilirubin 0.9 (0.2-1.3) mg/dL AST 17 (14-36) U/L ALT 12 (4-34) U/L Alkaline Phosphatase 92 (38-126) U/L Total Protein 7.0 (6.3-8.2) g/dL Albumin 4.2 (3.5-5.0) g/dL Assessment and Plan (1) Hydronephrosis with renal and ureteral calculous obstruction Narrative/Plan: The patient's right flank pain and hydronephrosis appeared to be related to a large distal right ureteral calculus. The likelihood of spontaneous passage is very low. The patient continues to have severe pain and does not wish for observation. I discussed right ureteroscopy with lithotripsy and this will be set up later today. She is aware of the operative risks which include anesthesia, infection, bleeding or ureteral injury and the need for a double-J catheter postop. Current Visit: Yes Status: Acute Code(s): N13.2 - HYDRONEPHROSIS WITH RENAL AND URETERAL CALCULOUS OBSTRUCTION SNOMED Code(s): 812556018
--- NOTE | 2019-10-09 17:33 | HP ---
HISTORY AND PHYSICAL CHIEF COMPLAINT: Back pain. HISTORY OF PRESENT ILLNESS: This is another admission for this 84-year-old white female who has had a history of stones before. She presented with flank pain and ultrasound revealed a mid ureteral large calculus with hydronephrosis. She has had no nausea, vomiting, and she has had no fever, chills, etc. REVIEW OF SYSTEMS: Otherwise unremarkable. She has had she has had no fever, chills. Past medical history, family history personal and social histories reveal that she is allergic to STATINS AND CEPHALOSPORINS. MEDICATIONS: Clopidogrel 75 mg once a day, trazodone 50 mg 1 or 2 hs, losartan 25 once a day, levothyroxine 0.088 mg, paroxetine 40 mg once a day, rosuvastatin 5 mg hs, Vicodin 5 q.4h p.r.n., Macrobid 100 mg twice a day, vitamin D and calcium. Remainder of her history is unremarkable. PHYSICAL EXAMINATION: Blood pressure is 138/74 with a pulse of 67, respirations of 20 and she is afebrile. In general she is overweight and somewhat uncomfortable. Head, ears, eyes, nose, mouth and throat were normal and neck veins were not distended. Chest was clear. Cardiac exam was normal. Abdomen was soft, nontender. She was tender in the right flank. Extremities were normal. Neurologically she was intact. She was admitted to the hospital with diagnoses. 1. Ureteral calculus with hydronephrosis. 2. Hypertension. 3. History of depression. 4. Arthritis of the lumbosacral spine. PLAN: 1. Bed rest. 2. IV fluids. 3. Analgesics. 4. Consult with Urology. She has required ureteral stenting in the past for a smaller stone. MMODL / IJN: [id number] /
[2019-10-09] MEDS ORDERED: HYDROmorphone 1 MG/ML 1 ML SYRINGE IVP ONE (19:45)
[2019-10-09] MEDS: ATORVASTATIN 10 MG TAB PO SCH ×2 (20:39→20:41)
[2019-10-09] MEDS: AMMONIUM LACTATE 12% CREAM 140 GM TUBE TOPICAL SCH (20:39)
[2019-10-09] MEDS: CALCIUM CARB-VIT D 500MG-200UN 1 EACH TAB PO SCH (20:39)
[2019-10-09] MEDS ORDERED: PARoxetine 20 MG TAB PO SCH (21:00)
[2019-10-10] MEDS: HYDROmorphone 0.5 MG/0.5 ML SYRINGE IVP PRN ×2 (01:06→09:17)
[2019-10-10] MEDS: LEVOTHYROXINE 88 MCG TAB PO SCH (05:34)
[2019-10-10] MEDS: MORPHINE SULFATE 4 MG/ML SYRINGE IV PRN ×2 (05:34→10:28)
[2019-10-10] MEDS: SODIUM CHLORIDE 0.9% 1,000 ML IV SCH (05:37)
[2019-10-10] MEDS: DOCUSATE 100 MG CAP PO SCH (07:45)
[2019-10-10] MEDS: CLOPIDOGREL 75 MG TAB PO SCH (07:45)
[2019-10-10] MEDS: CALCIUM CARB-VIT D 500MG-200UN 1 EACH TAB PO SCH (07:45)
[2019-10-10] MEDS: ASPIRIN 81 MG PO SCH (07:45)
[2019-10-10] MEDS: LOSARTAN 50 MG TAB PO SCH (07:45)
[2019-10-10] MEDS: TAMSULOSIN 0.4 MG CAP.ER.24H PO SCH (07:46)
[2019-10-10] MEDS: AMMONIUM LACTATE 12% CREAM 140 GM TUBE TOPICAL SCH (07:46)
[2019-10-10] MEDS ORDERED: LOSARTAN 25 MG TAB PO SCH (09:00)
[2019-10-10] MEDS ORDERED: IV FLUID CONTINUATION 1,000 ML IV ONE (10:45)
[2019-10-10] MEDS ORDERED: SUCCINYLCHOLINE CHLORIDE 100 MG/5 ML SYR IV ONE (11:57)
[2019-10-10] MEDS ORDERED: fentaNYL (PF) 50 MCG/ML 2 ML AMP ONE (11:57)
[2019-10-10] MEDS ORDERED: PROPOFOL 10 MG/ML 20 ML VIAL IV ONE (11:57)
[2019-10-10] MEDS ORDERED: PHENYLEPHRINE-0.9% NACL SYG 1 MG/10 ML SYRINGE ONE (11:57)
[2019-10-10] MEDS ORDERED: MIDAZOLAM 2 MG/2 ML VIAL ONE (11:57)
[2019-10-10] MEDS ORDERED: SODIUM CHLORIDE 0.9% 1,000 ML IV ONE ×3 (13:40→14:26)
[2019-10-10] MEDS ORDERED: HYDROmorphone 0.5 MG/0.5 ML SYRINGE IVP ONE (13:44)
[2019-10-10] MEDS ORDERED: ACETAMINOPHEN IV (For NPO) 1,000 MG/100 ML VIAL IVPB ONE (13:45)
--- NOTE | 2019-10-10 13:53 | FL ---
EXAMINATION TYPE: FL guidance operating room DATE OF EXAM: 10/10/2019 CLINICAL HISTORY: Right-sided kidney stone TECHNIQUE: Fluoroscopy. COMPARISON: CT abdomen and pelvis from yesterday. FINDINGS: Fluoroscopic guidance was provided during right ureter stent insertion procedure performed by Dr. Ochoa. A total of roughly 5 seconds of fluoroscopic time was utilized during the procedure a nd single spot fluoroscopic intraoperative image is acquired. Single image shows portion of the proxi mal right double-J ureter stent. IMPRESSION: As Above.
--- NOTE | 2019-10-10 13:59 | P.OP ---
Date of Procedure: 10/10/19 Preoperative Diagnosis: Right ureteral calculus Postoperative Diagnosis: Right ureteral calculus Procedure(s) Performed: Cystoscopy with right ureteroscopy, lithotripsy and placement of right double-J catheter Anesthesia: JENNIFER Surgeon: Aristides Ochoa Estimated Blood Loss (ml): 0 Pathology: other (Fragments of right ureteral calculus) Disposition: PACU Indications for Procedure: The patient is an 84-year-old female with a history of urolithiasis who developed severe right flank pain and hydronephrosis secondary to a 7 x 10 x 11 mm ureteral calculus which was located near the level of the pelvic brim. Right ureteroscopy with lithotripsy is planned. Description of Procedure: The patient was taken to the operating suite where adequate general anesthesia via orotracheal intubation was instituted. She was placed in the dorsal lithotomy position with her legs suspended from padded Wilbur stirrups. Pneumatic compression stockings were applied to the lower legs. The genitalia was prepped with Betadine solution and draped in sterile fashion. The external genitalia and urethral meatus were unremarkable. The 17.5-Romanian cystoscope sheath with 30 lens was passed through the urethra and into the bladder. Both ureteral orifices were of normal location and configuration. The bladder was free of tumor foreign body and calculus. A 0.035 straight Glidewire was advanced through the right ureteral orifice and under fluoroscopic guidance it was eventually passed beyond the calculus and into the proximal ureter. The cystoscope was withdrawn leaving the Glidewire in place. The 8.5-Romanian semirigid ureteroscope was passed through the urethra and into the bladder. The ureteroscope was advanced into the distal right ureter but the ureter appeared to be too narrow 3 or 4 cm proximal to the ureteral orifice for safe passage. The ureteroscope was withdrawn. The pelvic ureter was then dilated distal to the calculus using the 11-Romanian obturator from a 13-Romanian ureteral reentry sheath which was passed over the Glidewire. The ureteroscope was reintroduced into the bladder and right ureter and could be easily advanced up to the calculus. Lithotripsy was performed using the 272 fiber and the holmium laser at a setting of 400 mJ and 40 cps. The calculus was initially hollowed out and then the remaining fragments were broken down with the laser. Multiple 2-3 mm fragments were then removed from the ureter using a 1.9-Romanian nitinol stone basket. At completion the procedure all fragments larger than 1 mm had been removed due to the degree of obstruction and narrowing the ureter was elected to place a double-J catheter. The 21-Romanian cystoscope was backloaded over the Glidewire and reintroduced into the bladder. A 6-Romanian by 24 cm double-J catheter was then advanced over the Glidewire and positioned fluoroscopically so that the proximal end coiled in the region of the renal pelvis and the distal and coiled in the bladder. The bladder was drained and the procedure was terminated. Patient tolerated procedure well and left the operative room awake and in satisfactory condition. There was no blood loss. She will be seen back in follow-up in approximately 10 days at which time her double-J catheter will be removed
[2019-10-10] MEDS ORDERED: GENTAMICIN 140 MG in SODIUM CHLORIDE 0.9% 100 ML IVPB ONE (14:14)
--- NOTE | 2019-10-10 15:19 | PN ---
PROGRESS NOTE CHIEF COMPLAINT: Right ureteral calculus. HISTORY OF PRESENT ILLNESS: This lady is fairly groggy with analgesia at this time. She is going down today for cystoscopy and it is presumed that she will be getting stent. PHYSICAL EXAMINATION: Chest is clear. Cardiac exam is normal. Abdomen is soft and nontender and she is afebrile. IMPRESSION: Right ureteral calculus with hydronephrosis. PLAN: Cystoscopy today. MMODL / IJN: [id number] /
[2019-10-10 16:17] VITALS: PULSE 99
[2019-10-10 21:17] VITALS: BP 156/79; RESP 18; TEMP 98.6
--- NOTE | 2019-10-12 15:22 | DS ---
DISCHARGE SUMMARY DATE OF SERVICE: 10/10/2019 CHIEF COMPLAINT: Right ureteral calculus with hydronephrosis. HISTORY OF PRESENT ILLNESS AND PHYSICAL EXAMINATION: Details of this lady's history and physical can be found in the initial workup. LABORATORY STUDIES: While she was in the hospital, she had laboratory studies, details of which can be found in the laboratory section of her chart. COURSE IN THE HOSPITAL: After admission, she was placed on bed rest, started on intravenous fluids and analgesics. She was seen by Urology and was eventually taken for cystoscopy and stent placement. After that, it was felt that she could be discharged home and she will be followed up as an outpatient. FINAL DIAGNOSES: 1. Obstructing right ureteral calculus with hydronephrosis. 2. Hypertension. 3. Depression. OPERATIONS: Cystoscopy and right ureteral stent placement. CONSULTATIONS: Urology. She is improved. MMBISI / SUSANN: [id number] /
== END 2019-10-10 20:00 | disposition home or self-care (01) | DRG 661 ==
LOC: EC 01:34 → 4SSUR 05:50
PROVIDERS: ADMIT Family Medicine; ATTEND Family Medicine
PROC: 0T768DZ Dilation of Right Ureter with Intraluminal Device, Via Natural or Artificial Opening Endoscopic (ICD-10-PCS; principal; 2019-10-10 11:57)
PROC: 0TC68ZZ Extirpation of Matter from Right Ureter, Via Natural or Artificial Opening Endoscopic (ICD-10-PCS; principal; 2019-10-10 11:57)
DX: N13.2 Hydronephrosis with renal and ureteral calculous obstruction (principal); F32.9 Major depressive disorder, single episode, unspecified; E78.5 Hyperlipidemia, unspecified; I10 Essential (primary) hypertension; M46.97 Unspecified inflammatory spondylopathy, lumbosacral region; Z96.652 Presence of left artificial knee joint; Z79.02 Long term (current) use of antithrombotics/antiplatelets; Z79.890 Hormone replacement therapy; Z79.82 Long term (current) use of aspirin; Z79.899 Other long term (current) drug therapy; Z88.8 Allergy status to other drugs, medicaments and biological substances; Z86.73 Personal history of transient ischemic attack (TIA), and cerebral infarction without residual deficits; Z98.890 Other specified postprocedural states; Z88.1 Allergy status to other antibiotic agents; Z90.710 Acquired absence of both cervix and uterus; Z86.72 Personal history of thrombophlebitis; Z90.49 Acquired absence of other specified parts of digestive tract; Z90.89 Acquired absence of other organs; Z82.49 Family history of ischemic heart disease and other diseases of the circulatory system; Z83.79 Family history of other diseases of the digestive system
CPT/HCPCS: 36415; 74176; 80053; 81001; 82150; 82365; 83690; 85025; 96374; 96375; 96376; 99285

== ENCOUNTER → 2019-11-12 | Outpatient (CLI) | payer MEDICARE, BC ==
--- NOTE | 2019-11-12 11:43 | US ---
EXAMINATION TYPE: US kidneys/renal and bladder DATE OF EXAM: 11/12/2019 COMPARISON: NONE CLINICAL HISTORY: N13.30 Right Hydronephrosis. history of kidney stones and hydronephrosis EXAM MEASUREMENTS: Right Kidney: 11.0 x 4.8 x 4.3 cm Left Kidney: 11.8 x 5.4 x 5.3 cm *Technical limitations due to large amount of overlying bowel content Right Kidney: no evidence of hydronephrosis Left Kidney: no evidence of hydronephrosis Bladder: appears wnl, not fully distended Bilateral Jets seen: no There is no evidence for hydronephrosis at this point in time. No nephrolithiasis is seen. No lefty s are identified. The urinary bladder is anechoic. Bilateral ureteral jets are seen. IMPRESSION: No distinct abnormality seen on this somewhat limited study.
== END | disposition home or self-care (01) ==
LOC: RADUSWWP 10:58
PROVIDERS: ATTEND Urology
DX: N13.30 Unspecified hydronephrosis (principal); Z88.1 Allergy status to other antibiotic agents
CPT/HCPCS: 76770

== ENCOUNTER → 2019-12-28 | Outpatient (CLI) | payer MEDICARE, BC ==
--- NOTE | 2019-12-28 21:05 | US ---
EXAMINATION TYPE: US thyroid st tissue head/neck DATE OF EXAM: 12/28/2019 COMPARISON: NONE CLINICAL HISTORY: 84-year-old female E21.0 Primary hyperparathyroidism. TECHNIQUE: Multiple sonographic images of the thyroid gland are obtained. FINDINGS: GLAND SIZE: Right Lobe: 4.2 x 1.7 x 2.0 cm Overall Parenchyma: heterogenous Left Lobe: 3.3 x 1.8 x 1.4 cm Overall Parenchyma: heterogeneous Isthmus Thickness: 0.2 cm NODULES RIGHT: # of nodules measured on right: 0 LEFT: # of nodules measured on left: 0 ISTHMUS: # of nodules measured in the isthmus: 0 Bilateral neck scanned, no evidence of lymphadenopathy. SECURITIES SETTLEMENT PROCESSOR NOTES: Patient has short thick neck and had to sit somewhat upright for exam. Technically difficult and somewhat limited exam. IMPRESSION: 1. Technically difficult and limited exam as above. 2. Heterogeneous thyroid gland could represent chronic hypothyroidism, goiter, or diffuse thyroiditis . 3. No discrete nodules identified.
== END | disposition home or self-care (01) ==
LOC: RADUSWWP 17:03
PROVIDERS: ATTEND Internal Medicine Endocrinology, Diabetes & Metabolism
DX: E21.0 Primary hyperparathyroidism (principal)
CPT/HCPCS: 76536

== ENCOUNTER → 2020-03-18 | Outpatient (CLI) | payer MEDICARE, BC | END | disposition home or self-care (01) | LOC: LABWHC1 14:45 | PROVIDERS: ATTEND Surgery | DX: Z48.89 Encounter for other specified surgical aftercare (principal); Z98.890 Other specified postprocedural states | CPT/HCPCS: 36415; 82310 ==

== ENCOUNTER → 2020-04-08 | Outpatient (CLI) | payer MEDICARE, BC ==
[2020-04-09 04:21] LABS: African American GFR (CKD) 90.9 (60.0-200.0); Albumin 4.5 g/dL (3.80-4.90); Albumin/Globulin Ratio 2.37 (1.60-3.17); Anion Gap 10.3 mmol/L (4.00-12.00); BUN/Creat Ratio 35.71 Ratio (12.00-20.00); Calcium 9.5 mg/dL (8.7-10.3); Carbon Dioxide 23.7 mmol/L (21.6-31.8); Globulin 1.9 g/dL (1.6-3.3); Non-African American GFR(CKD) 78.5 (60.0-200.0); Potassium 4.2 mmol/L (3.5-5.5); Total Protein 6.4 g/dL (6.2-8.2)
== END | disposition home or self-care (01) ==
LOC: LABWHC1 15:56
PROVIDERS: ATTEND Internal Medicine Endocrinology, Diabetes & Metabolism
DX: E21.0 Primary hyperparathyroidism (principal)
CPT/HCPCS: 36415; 80053; 82306; 83970; 84443

== ENCOUNTER → 2020-11-25 | Outpatient (CLI) | payer MEDICARE, BC ==
[2020-11-25 15:11] LABS: Basophils # (A) 0.05 X 10*3/uL (0.00-0.10); Basophils % (A) 0.7 %; Eosinophils # (A) 0.29 X 10*3/uL (0.04-0.35); Eosinophils % (A) 4.3 %; HCT 48.7 % (37.2-46.3); Lymphocytes % (A) 14.9 %; MCH 31.7 pg (27.0-32.0); MCHC 32.9 g/dL (32.0-37.0); MCV 96.6 fL (80.0-97.0); Mean Platelet Volume 9.9 fL (9.5-12.2); Monocytes # (A) 0.69 X 10*3/uL (0.20-1.00); Monocytes % (A) 10.3 %; Neutrophils # (A) 4.66 X 10*3/uL (1.80-7.70); Neutrophils % (A) 69.4 %; Platelet Count 231 X 10*3/uL (140-440); RBC 5.04 X 10*6/uL (4.10-5.20); RDW 13.8 % (11.5-14.5); WBC 6.72 X 10*3/uL (4.50-10.00)
[2020-11-26 21:55] LABS: African American GFR (CKD) 100.3 (60.0-200.0); Albumin 4.2 g/dL (3.8-4.9); Albumin/Globulin Ratio 1.85 (1.60-3.17); Anion Gap 17.3 mmol/L (4.00-12.00); BUN/Creat Ratio 50.29 Ratio (12.00-20.00); Blood Urea Nitrogen 26.1 mg/dL (9.0-27.0); Calcium 9.2 mg/dL (8.7-10.3); Carbon Dioxide 18.1 mmol/L (21.6-31.8); Chol/HDL Ratio 3.63 Ratio; Globulin 2.3 g/dL (1.6-3.3); HDL Cholesterol 53.7 mg/dL (40.00-60.00); LDL Cholesterol,Calculated 119.9 mg/dL (0.0-131.0); Non-African American GFR(CKD) 86.6 (60.0-200.0); Potassium 4.3 mmol/L (3.5-5.5); T4, Free (Free Thyroxine) 1.24 ng/dL (0.800-1.800); Total Bilirubin 0.7 mg/dL (0.30-1.20); Total Protein 6.5 g/dL (6.2-8.2); VLDL Calculation 21.4 mg/dL (5.00-40.00)
== END | disposition home or self-care (01) ==
LOC: LABWHC1 10:36
PROVIDERS: ATTEND Internal Medicine Endocrinology, Diabetes & Metabolism
DX: Z00.00 Encounter for general adult medical examination without abnormal findings (principal); Z13.220 Encounter for screening for lipoid disorders; E55.9 Vitamin D deficiency, unspecified; E78.5 Hyperlipidemia, unspecified; I10 Essential (primary) hypertension; E03.9 Hypothyroidism, unspecified; E21.0 Primary hyperparathyroidism; I69.351 Hemiplegia and hemiparesis following cerebral infarction affecting right dominant side; R53.83 Other fatigue; Z99.3 Dependence on wheelchair
CPT/HCPCS: 36415; 80053; 80061; 82306; 82607; 83735; 83970; 84207; 84439; 84443; 84630; 85025